=== PATIENT | female | born 1995 | race Caucasian/White ===

== ENCOUNTER 2019-10-31 14:04 | Emergency (ER) | payer OTHER ==
--- NOTE | 2019-10-31 14:41 | ER Document Report ---
ED Medical Screen (RME) - General Chief Complaint: Chest Pain Stated Complaint: CHEST PAIN Time Seen by Provider: 10/31/19 14:35 Mode of Arrival: Ambulatory Information source: Patient Notes: 24-year-old female presented to ED for complaint of chest pain shortness of breath feels like there is a weight on her chest. She is alert oriented respirations regular nonlabored speaking in full sentences. She is 1. Para 1. She does not smoke drink or use any drugs. She states she has never felt anything like this before. Consult with Dr. Donnelly he stated that she go ahead and get normal chest pain protocol. Will give aspirin due to the fact that she is . I have greeted and performed a rapid initial assessment of this patient. A comprehensive ED assessment and evaluation of the patient, analysis of test results and completion of medical decision making process will be conducted by an additional ED providers. Physical Exam - Vital signs Vitals: Temp Pulse Resp BP Pulse Ox 98.4 F 80 20 111/71 100 10/31/19 14:14 10/31/19 14:14 10/31/19 14:14 10/31/19 14:14 10/31/19 14:14 Course - Vital Signs Vital signs: Temp Pulse Resp BP Pulse Ox 98.4 F 80 20 111/71 100 10/31/19 14:14 10/31/19 14:14 10/31/19 14:14 10/31/19 14:14 10/31/19 14:14
[2019-10-31 15:27] LABS: HEMATOCRIT 34.6 % (36.0-47.0); HEMOGLOBIN 12.1 g/dL (12.0-15.5); MEAN CORPUSCULAR HEMOGLOBIN 31.1 pg (27.0-33.4); MEAN CORPUSCULAR HGB CONC 34.9 g/dL (32.0-36.0); MEAN CORPUSCULAR VOLUME 89 fl (80-97); PLATELET COUNT 270 10^3/uL (150-450); RED BLOOD COUNT 3.89 10^6/uL (3.72-5.28); RED CELL DISTRIBUTION WIDTH 13.4 % (11.5-14.0); WHITE BLOOD COUNT 14.1 10^3/uL (4.0-10.5)
--- NOTE | 2019-10-31 15:35 | RADIOLOGY REPORT (SQ) ---
EXAM DESCRIPTION: CHEST 2 VIEWS IMAGES COMPLETED DATE/TIME: 10/31/2019 3:22 pm REASON FOR STUDY: chest pain COMPARISON: None. EXAM PARAMETERS: NUMBER OF VIEWS: two views TECHNIQUE: Digital Frontal and Lateral radiographic views of the chest acquired. RADIATION DOSE: NA LIMITATIONS: none FINDINGS: LUNGS AND PLEURA: No opacities, masses or pneumothorax. No pleural effusion. MEDIASTINUM AND HILAR STRUCTURES: No masses or contour abnormalities. HEART AND VASCULAR STRUCTURES: Heart normal size. No evidence for failure. BONES: No acute findings. HARDWARE: None in the chest. OTHER: No other significant finding. IMPRESSION: NO ACUTE RADIOGRAPHIC FINDING IN THE CHEST. TECHNICAL DOCUMENTATION: JOB ID: [id number] 2010 [employer]- All Rights Reserved Reading location - IP/workstation name: [email or web address]
[2019-10-31 15:43] LABS: ALBUMIN 3.7 g/dL (3.5-5.0); ALKALINE PHOSPHATASE 72 U/L (38-126); ANION GAP 9 (5-19); ASPARTATE AMINO TRANSFERASE 24 U/L (14-36); BILIRUBIN,DIRECT 0.2 mg/dL (0.0-0.4); BILIRUBIN,TOTAL 0.9 mg/dL (0.2-1.3); BLOOD UREA NITROGEN 7 mg/dL (7-20); CALCIUM 9.6 mg/dL (8.4-10.2); CARBON DIOXIDE 24 mmol/L (22-30); CHLORIDE 103 mmol/L (98-107); GLUCOSE 86 mg/dL (75-110); POTASSIUM 4.6 mmol/L (3.6-5.0); TOTAL PROTEIN 6.3 g/dL (6.3-8.2)
--- NOTE | 2019-10-31 15:54 | ER Document Report ---
ED Cardiac - General Chief Complaint: Chest Pain Stated Complaint: CHEST PAIN Time Seen by Provider: 10/31/19 14:35 Primary Care Provider: [facility] [Provider Group] - Follow up as needed CYNDI VILLALOBOS MD [ACTIVE STAFF] - Follow up as needed Mode of Arrival: Ambulatory Information source: Patient Notes: Patient presents complaining of heart racing off and on since yesterday. Patient reports chest pressure today with exertional shortness of breath. P anisha is currently 28 weeks . Patient denies any urinary symptoms or vaginal bleeding. Patient denies any nausea or vomiting. Patient does report movement. Patient states that she has been on 2 trips recently 1 to [place] and 1 cross[place]country 4 weeks ago. Patient denies any leg pain or swelling. Patient denies any previous history of DVT or PE. - HPI Patient complains to provider of: Chest pain, Palpitations, Shortness of breath Is the pain a: New problem Quality of pain: Pressure Pain level currently: 2 Chest pain precipitating factors: Physical Exertion Cardiac risk factors: denies: Smoker Associated symptoms: denies: Abdominal pain, Back pain, Syncope Exacerbated by: Activity Relieved by: Nothing Similar symptoms previously: No Recently seen / treated by doctor: No - Related Data Allergies/Adverse Reactions: No Known Allergies Allergy (Unverified 10/31/19 15:45) Past Medical History - General Information source: Patient - Social History Smoking Status: Never Smoker Frequency of alcohol use: None Drug Abuse: None Occupation: None Lives with: Spouse/Significant other Family History: Reviewed & Not Pertinent - Medical History Medical History: Negative Past Surgical History: Reports: Hx Orthopedic Surgery Review of Systems - Review of Systems Constitutional: No symptoms reported. denies: Fever, Recent illness EENT: No symptoms reported Cardiovascular: Chest pain, Palpitations, Dyspnea Respiratory: Short of breath. denies: Cough Gastrointestinal: No symptoms reported. denies: Abdominal pain, Nausea, Vomiting Genitourinary: No symptoms reported Female Genitourinary: No symptoms reported Musculoskeletal: No symptoms reported. denies: Back pain, Leg swelling Skin: No symptoms reported Hematologic/Lymphatic: No symptoms reported Neurological/Psychological: No symptoms reported Physical Exam - Vital signs Vitals: Temp Pulse Resp BP Pulse Ox 98.4 F 80 20 111/71 100 10/31/19 14:14 10/31/19 14:14 10/31/19 14:14 10/31/19 14:14 10/31/19 14:14 - General General appearance: Appears well, Alert In distress: None - HEENT Head: Normocephalic, Atraumatic Eyes: Normal Conjunctiva: Normal Nasal: Normal Mouth/Lips: Normal Mucous membranes: Normal Neck: Normal, Supple. No: Lymphadenopathy - Respiratory Respiratory status: No respiratory distress Chest status: Tender Breath sounds: Normal Chest palpation: Normal - Cardiovascular Rhythm: Regular Heart sounds: S1 appreciated, S2 appreciated - Abdominal Inspection: Gravid female Distension: No distension Bowel sounds: Normal Tenderness: Nontender - Back Back: Normal, Nontender. No: CVA tenderness - Extremities General upper extremity: Normal inspection, Normal strength General lower extremity: Normal inspection, Normal strength. No: Edema - Neurological Neuro grossly intact: Yes Cognition: Normal [place] Coma Scale Eye Opening: Spontaneous [place] Coma Scale Verbal: Oriented [place] Coma Scale Motor: Obeys Commands [place] Coma Scale Total: 15 - Psychological Associated symptoms: Normal affect, Normal mood - Skin Skin Temperature: Warm Skin Moisture: Dry Skin Color: Normal Course - Re-evaluation Re-evalutation: 10/31/19 16:41 Patient with heart rate in the 90s to 100s at rest, patient reports increased heart rate with exertion and complains of chest pressure with dyspnea. Patient does report long distance travel recently to [place] and then 1 month ago cross- country. 10/31/19 16:46 Discussed with patient concern about possible PE given recent long distance travel trips. Discussed risks of radiation exposure versus missing diagnosis of PE, patient is agreeable with contrasted study at this time. 10/31/19 18:00 No evidence for PE on CTA at this time. Presentation of chest pain in an otherwise well appearing patient. Low clinical suspicion for ACS given clinical history, exam, and EKG, and negative initial troponin. HEART score less than or equal to 3. PE also seems unlikely given negative CTA. CXR without evidence of pneumothorax or pneumonia. No widened mediastinum. Chest pain in a patient without evidence of cardiac or other serious etiology on workup today. I discussed with patient that, based on their age, risk factors and emergency department testing today, the likelihood that their symptoms are related to a heart attack is very low. The patient demonstrates decision making capacity and has verbalized an understanding of these risks to me. Based on this, the patient has chosen to follow-up as an outpatient. Usual chest pain return precautions reviewed. The patient states understanding and agreement with this plan. - Vital Signs Vital signs: Temp Pulse Resp BP Pulse Ox 98.4 F 80 19 99/57 L 99 10/31/19 14:14 10/31/19 14:14 10/31/19 19:00 10/31/19 18:11 10/31/19 19:00 - Laboratory Result Diagrams: 10/31/19 14:58 10/31/19 14:58 Laboratory results interpreted by me: 10/31/19 10/31/19 14:58 14:58 WBC 14.1 H Hct 34.6 L Seg Neuts % (Manual) 81 H Lymphocytes % (Manual) 7 L Abs Neuts (Manual) 11.4 H Sodium 135.5 L 10/31/19 18:00 Labs- All tests 24 hr 10/31/19 10/31/19 10/31/19 14:58 14:58 14:58 WBC 14.1 H RBC 3.89 Hgb 12.1 Hct 34.6 L MCV 89 MCH 31.1 MCHC 34.9 RDW 13.4 Plt Count 270 Lymph % (Auto) Not Reportable Crosby % (Auto) Not Reportable Eos % (Auto) Not Reportable Baso % (Auto) Not Reportable Absolute Neuts (auto) Not Reportable Absolute Lymphs (auto) Not Reportable Absolute Monos (auto) Not Reportable Absolute Eos (auto) Not Reportable Absolute Basos (auto) Not Reportable Total Counted 100 Seg Neutrophils % Not Reportable Seg Neuts % (Manual) 81 H Lymphocytes % (Manual) 7 L Monocytes % (Manual) 10 Eosinophils % (Manual) 1 Basophils % (Manual) 1 Abs Neuts (Manual) 11.4 H Abs Lymphs (Manual) 1.0 Abs Monocytes (Manual) 1.4 Absolute Eos (Manual) 0.1 Abs Basophils (Manual) 0.1 Clumped Platelets PRESENT Platelet Comment ADEQUATE RBC Morph Comment NORMO-CYTIC/CHROMIC Sodium 135.5 L Potassium 4.6 Chloride 103 Carbon Dioxide 24 Anion Gap 9 BUN 7 Creatinine 0.52 Est GFR ( Amer) > 60 Est GFR (MDRD) Non-Af > 60 Glucose 86 Calcium 9.6 Total Bilirubin 0.9 Direct Bilirubin 0.2 Neonat Total Bilirubin Not Reportable Neonat Direct Bilirubin Not Reportable Neonat Indirect Bili Not Reportable AST 24 ALT 17 Alkaline Phosphatase 72 Troponin I < 0.012 Total Protein 6.3 Albumin 3.7 - Diagnostic Test Radiology reviewed: Reports reviewed - EKG Interpretation by Me EKG shows normal: Sinus rhythm Rhythm: PVC's When compared to previous EKG there are: Previous EKG unavailable Additional EKG results interpreted by me: 10/31/19 18:01 Sinus rhythm with a rate of 80 with a PVC, QTc 462, no prior EKG available for comparison Discharge - Discharge Clinical Impression: Chest pain Qualifiers: Chest pain type: unspecified Qualified Code(s): R07.9 - Chest pain, unspecified Dyspnea Qualifiers: Dyspnea type: unspecified Qualified Code(s): R06.00 - Dyspnea, unspecified Qualifiers: Weeks of gestation: 28 weeks Qualified Code(s): Z3A.28 - 28 weeks gestation of Condition: Stable Disposition: HOME, SELF-CARE Instructions: Chest Pain of Unclear Cause ([facility]), Dyspnea, Nonspecific ([facility]) Additional Instructions: Return immediately for any new or worsening symptoms Followup with your primary care provider, call tomorrow to make a followup appointment Follow-up with your THERAPEUTIC CASE MANAGER provider for recheck, they may refer to cardiology for further evaluation Referrals: [facility] [Provider Group] - Follow up as needed CYNDI VILLALOBOS MD [ACTIVE STAFF] - Follow up as needed
[2019-10-31] MEDS ORDERED: NORMAL SALINE 1000 ML 1,000 ML IV ONE (15:55)
[2019-10-31 16:08] LABS: ABSOLUTE MONOCYTES # (MANUAL) 1.4 10^3/uL (0.1-1.4); BASOPHILS % (MANUAL) 1 % (0-2); EOSINOPHILS % (MANUAL) 1 % (0-6); LYMPHOCYTES % (MANUAL) 7 % (13-45); MONOCYTES % (MANUAL) 10 % (3-13); SEGMENTED NEUTROPHILS % (MAN) 81 % (42-78); TOTAL CELLS COUNTED 100
[2019-10-31 16:09] LABS: PLATELET CLUMPS PRESENT; PLATELET COMMENT ADEQUATE
[2019-10-31 16:10] LABS: RBC MORPHOLOGY COMMENT NORMO-CYTIC/CHROMIC
--- NOTE | 2019-10-31 17:49 | RADIOLOGY REPORT (SQ) ---
EXAM DESCRIPTION: CTA CHEST IMAGES COMPLETED DATE/TIME: 10/31/2019 5:14 pm REASON FOR STUDY: SVEN SOB COMPARISON: 10/31/2019 TECHNIQUE: CT scan of the chest performed using helical scanning technique with dynamic intravenous contrast injection. Images reviewed with lung, soft tissue and bone windows. Reconstructed coronal and sagittal MPR images reviewed. Additional 3 dimensional post-processing performed to develop Maximal Intensity Projection images (WI P). All images stored on PACS. All CT scanners at this facility use dose modulation, iterative reconstruction, and/or weight based d osing when appropriate to reduce radiation dose to as low as reasonably achievable (ALARA). [facility]: Dose Right [facility]: CareDose [facility]: Dose Right [facility]: Teradose 4D [facility]: Fresvii CONTRAST TYPE AND DOSE: contrast/concentration: Isovue 350.00 mmol/ml; Total Contrast Delivered: 75. 0 ml; Total Saline Delivered: 75.0 ml Contrast bolus adequate for pulmonary arteries and aorta. RENAL FUNCTION: BUN 7; creatinine 0.52 RADIATION DOSE: CT Rad equipment meets quality standard of care and radiation dose reduction techniq ues were employed. CTDIvol: 9.9 - 16.7 mGy. DLP: 524 mGy-cm. . LIMITATIONS: None. FINDINGS: LUNGS AND PLEURA: No masses, infiltrates, or pneumothorax. No pleural effusions or pleura l calcifications. AORTA AND GREAT VESSELS: No aneurysm. Contrast bolus not optimized for the aorta. HEART: No pericardial effusion. No significant coronary artery calcifications. PULMONARY ARTERIES: No emboli visualized in the main pulmonary arteries or the segmental branches. HILAR AND MEDIASTINAL STRUCTURES: No identified masses or abnormal nodes. HARDWARE: None in the chest. UPPER ABDOMEN: No significant findings. Limited exam. THYROID AND OTHER SOFT TISSUES: No masses. No adenopathy. BONES: No acute or significant finding. 3D MIPS: Confirm above findings. OTHER: No other significant finding. IMPRESSION: No evidence of central or segmental pulmonary embolus. No acute cardiopulmonary abnorma lity. COMMENT: Quality ID # [id number]: Final reports with documentation of one or more dose reduction techniques (e.g., Automated exposure control, adjustment of the mA and/or kV according to patient size, use of iterative reconstruction technique) TECHNICAL DOCUMENTATION: JOB ID: [id number] 2010 [employer]- All Rights Reserved Reading location - IP/workstation name: [email or web address]
--- NOTE | 2019-10-31 19:12 | EKG REPORT ---
SEVERITY:- ABNORMAL ECG - SINUS RHYTHM VENTRICULAR PREMATURE COMPLEX LEFT ATRIAL ABNORMALITY NONSPECIFIC INTRAVENTRICULAR CONDUCTION DELAY BORDERLINE ST DEPRESSION, LATERAL LEADS : Confirmed by: Flower Kulkarni 31-Oct-2019 19:12:20
[2019-10-31 19:21] VITALS: BP 99/57
== END 2019-10-31 19:21 | disposition home or self-care (01) ==
LOC: ER 14:04
DX: O26.893 Other specified pregnancy related conditions, third trimester (principal); R07.89 Other chest pain; R06.02 Shortness of breath; R00.2 Palpitations; O99.413 Diseases of the circulatory system complicating pregnancy, third trimester; I49.3 Ventricular premature depolarization; Z3A.28 28 weeks gestation of pregnancy
CPT/HCPCS: 93005; 99285; 96360; 36415; 85025; 80053; 84484; 71046; 71275; 93010; J7030

== ENCOUNTER 2019-11-25 13:44 | Outpatient (CLI) | payer OTHER ==
[2019-11-25 14:22] LABS: AMORPHOUS SEDIMENT,URINE TRACE /HPF; APPEARANCE,URINE CLOUDY; BILIRUBIN,URINE NEGATIVE (NEGATIVE); COLOR,URINE YELLOW; GLUCOSE, URINE NEGATIVE (NEGATIVE); KETONES,URINE NEGATIVE (NEGATIVE); LEUKOCYTE ESTERASE,URINE SMALL (NEGATIVE); NITRITE,URINE NEGATIVE (NEGATIVE); PROTEIN,URINE 30 mg/dL (NEGATIVE); URINE SPECIFIC GRAVITY 1.013
[2019-11-25 14:47] LABS: URINE AMPHETAMINES SCREEN NEGATIVE; URINE BARBITURATES SCREEN NEGATIVE; URINE BENZODIAZEPINES SCREEN NEGATIVE; URINE COCAINE SCREEN NEGATIVE; URINE MARIJUANA (THC) SCREEN NEGATIVE; URINE METHADONE SCREEN NEGATIVE; URINE PHENCYCLIDINE SCREEN NEGATIVE
== END 2019-11-25 14:49 | disposition home or self-care (01) ==
LOC: LC 13:44
PROVIDERS: ATTEND Obstetrics & Gynecology Gynecology
DX: O36.8130 Decreased fetal movements, third trimester, not applicable or unspecified (principal); Z3A.30 30 weeks gestation of pregnancy
CPT/HCPCS: 80307; 81001

== ENCOUNTER 2020-01-28 20:16 | Outpatient (CLI) | payer OTHER ==
[2020-01-28 22:42] LABS: ABSOLUTE BASOPHILS # (AUTO) 0.1 10^3/uL (0.0-0.2); ABSOLUTE EOSINOPHILS # (AUTO) 0.1 10^3/uL (0.0-0.6); ABSOLUTE LYMPHOCYTES (AUTO) 1.4 10^3/uL (0.5-4.7); ABSOLUTE MONOCYTES (AUTO) 0.9 10^3/uL (0.1-1.4); ABSOLUTE NEUT (AUTO) 8.9 10^3/uL (1.7-8.2); BASOPHILS % (AUTO) 0.4 % (0-2); EOSINOPHILS % (AUTO) 0.8 % (0-6); HEMATOCRIT 33.1 % (36.0-47.0); HEMOGLOBIN 11.5 g/dL (12.0-15.5); LYMPHOCYTES % (AUTO) 12.2 % (13-45); MEAN CORPUSCULAR HEMOGLOBIN 30.3 pg (27.0-33.4); MEAN CORPUSCULAR HGB CONC 34.7 g/dL (32.0-36.0); MEAN CORPUSCULAR VOLUME 87 fl (80-97); MONOCYTES % (AUTO) 7.9 % (3-13); PLATELET COUNT 252 10^3/uL (150-450); RED BLOOD COUNT 3.78 10^6/uL (3.72-5.28); RED CELL DISTRIBUTION WIDTH 14.1 % (11.5-14.0); SEGMENTED NEUTROPHILS % (AUTO) 78.7 % (42-78); TOTAL CELLS COUNTED % (AUTO) 100 %; WHITE BLOOD COUNT 11.3 10^3/uL (4.0-10.5)
--- NOTE | 2020-01-28 23:59 | RADIOLOGY REPORT (SQ) ---
Ultrasound OB biophysical profile without nonstress test on 01/28/2020 at 11:01 PM CLINICAL INDICATION: Nonreactive strip, 40 weeks COMPARISON: None FINDINGS: Limited sonographic images are obtained throughout the pelvis by transabdominal approach, both transverse and sagittal images are obtained. Single living intrauterine fetus is noted in cephalic presentation. Positive cardiac activity is noted with a heart rate of 155 bpm. Placenta is anterior in location with no evidence of placenta previa or abruption. Normal amount of amniotic fluid is noted with amniotic fluid index of 12.7 cm with a maximum vertical pocket of 7.56 cm. Biophysical profile is six out of eight with zero out of two for breathing. measurements for dates were not performed. Maternal adnexa were not imaged. IMPRESSION: 1. Single living intrauterine fetus in cephalic presentation. 2. Biophysical profile is six out of eight with zero out of two for breathing.
--- NOTE | 2020-01-29 00:35 | Non Stress Test Report ---
Non Stress Test Datetime Report Generated by CPN: 01/29/2020 00:35 DEMOGRAPHIC EGA NST: 40.0 INDICATION Indication for Study (NST) Other: IUP @ 40.1 VITAL SIGNS Temperature - NST: 98.9 Pulse - NST: 96 RESP - NST: 17 NBPSYS NST: 116 NBPDIA NST: 77 MONITORING Monitor Explained: Monitor Explained; Test Explained; Patient Verbalized Understanding Time on Monitor: 01/28/2020 23:43 Time off Monitor: 01/29/2020 00:16 NST Duration: 33 NST INTERVENTIONS NST Interventions: PO Hydration; IV Fluids; Reposition Patient; For Biophysical Profile Physician Notified NST: Dr. Adam BABY A: [id number] BABY A Movement : Present Contraction Frequency : irregular FHR Baseline : 150 Accelerations : 15X15 Decelerations : Late Variability : Moderate 6-25bpm NST Review: Questionable if Meets Criteria for Reactive NST NST Review and Verified By : Darek Roman, RN NST Results: Reactive NST COMMENTS NST Comments: Provider notified of questionable strip with late decelerations; moderate variability. BPP results 6/8. NST REPORT Report Trigger: Send Report
== END 2020-01-29 00:35 | disposition home or self-care (01) ==
LOC: LC 20:16
PROVIDERS: ATTEND Obstetrics & Gynecology Gynecology
DX: O47.1 False labor at or after 37 completed weeks of gestation (principal); Z3A.40 40 weeks gestation of pregnancy
CPT/HCPCS: 36415; 59025; 76819; 85025; 86592; 86850; 86900; 86901

== ENCOUNTER 2020-01-29 18:56 | Inpatient (IN) | payer OTHER ==
[2020-01-29 19:47] LABS: APPEARANCE,URINE CLEAR; BILIRUBIN,URINE NEGATIVE (NEGATIVE); COLOR,URINE YELLOW; GLUCOSE, URINE NEGATIVE (NEGATIVE); KETONES,URINE NEGATIVE (NEGATIVE); LEUKOCYTE ESTERASE,URINE TRACE (NEGATIVE); NITRITE,URINE NEGATIVE (NEGATIVE); PROTEIN,URINE 30 mg/dL (NEGATIVE); URINE SPECIFIC GRAVITY 1.014
[2020-01-29 20:05] LABS: URINE AMPHETAMINES SCREEN NEGATIVE; URINE BARBITURATES SCREEN NEGATIVE; URINE BENZODIAZEPINES SCREEN NEGATIVE; URINE COCAINE SCREEN NEGATIVE; URINE MARIJUANA (THC) SCREEN NEGATIVE; URINE METHADONE SCREEN NEGATIVE; URINE PHENCYCLIDINE SCREEN NEGATIVE
--- NOTE | 2020-01-29 22:14 | Admission Physical ---
Datetime Report Generated by CPN: 01/29/2020 22:14 CURRENT ADMISSION Chief Complaint: Uterine Contractions Indication for Induction: Not Applicable Admit Impression : Term, Intrauterine ; Active Labor Admit Plan: Admit to Unit; Initiate Labor Protocol ALLERGIES Medication Allergies: No Medication Allergies: No Known Allergies (01/28/2020) Latex: No Latex Allergies OBSTETRICAL HISTORY EDC: 01/28/2020 00:00 : 1 Para: 0 Term: 0 : 0 SAB: 0 IAB: 0 Ectopic: 0 Livin Cesareans: 0 VBACs: 0 Multiple Births: 0 SEE RECORDS Alcohol: No Marijuana : No Cocaine: No Other Illicit Drugs: No Cigarettes: Never Smoker. [id number] PHYSICAL EXAM General: Normal HEENT: Normal Neurologic: Normal Thyroid: Normal Heart: Normal Lungs: Normal Breast: Normal Back: Normal Abdomen: Normal Genitourinary Exam: Normal Extremities: Normal DTRs: Normal Pelvic Type: Adequate Vital Signs: Reviewed; Within Normal Limits VAGINAL EXAM Dilatation: 5 Effacement: 80 Station: -2 MEMBRANES Pooling: Negative Membranes: Intact Amniotic Fluid Color: Clear FETUS A EGA: 40.1 Monitoring: External US FHR- Baseline: 130 Variability: Moderate 6-25bpm Accelerations: 15X15 Decelerations: None FHR Category: Category I Estimated Weight (gm): 3500 Presentation: Vertex PLANS FOR LABOR AND DELIVERY Labor and Delivery: None Benefit of Breast Feed Discussed: Yes INFORMED CONSENT Signature: with User ID: [email or web address]
[2020-01-29] MEDS ORDERED: RINGERS SOLUTION,LACTATED 1,000 ML IV PRN (23:36)
[2020-01-30 00:02] LABS: ABSOLUTE BASOPHILS # (AUTO) 0.1 10^3/uL (0.0-0.2); ABSOLUTE EOSINOPHILS # (AUTO) 0.1 10^3/uL (0.0-0.6); ABSOLUTE LYMPHOCYTES (AUTO) 1.6 10^3/uL (0.5-4.7); ABSOLUTE MONOCYTES (AUTO) 1.2 10^3/uL (0.1-1.4); ABSOLUTE NEUT (AUTO) 12.3 10^3/uL (1.7-8.2); BASOPHILS % (AUTO) 0.4 % (0-2); EOSINOPHILS % (AUTO) 0.6 % (0-6); HEMATOCRIT 32.4 % (36.0-47.0); HEMOGLOBIN 11.1 g/dL (12.0-15.5); LYMPHOCYTES % (AUTO) 10.3 % (13-45); MEAN CORPUSCULAR HEMOGLOBIN 29.9 pg (27.0-33.4); MEAN CORPUSCULAR HGB CONC 34.3 g/dL (32.0-36.0); MEAN CORPUSCULAR VOLUME 87 fl (80-97); MONOCYTES % (AUTO) 7.8 % (3-13); PLATELET COUNT 241 10^3/uL (150-450); RED BLOOD COUNT 3.72 10^6/uL (3.72-5.28); RED CELL DISTRIBUTION WIDTH 13.7 % (11.5-14.0); SEGMENTED NEUTROPHILS % (AUTO) 80.9 % (42-78); TOTAL CELLS COUNTED % (AUTO) 100 %; WHITE BLOOD COUNT 15.3 10^3/uL (4.0-10.5)
[2020-01-30] MEDS ORDERED: LIDOCAINE 1% INJ-PF (10 MG/ML) 30 ML SDV ONE (00:10)
[2020-01-30] MEDS ORDERED: OXYTOCIN 10 UNIT/ML VIAL ONE (00:10)
[2020-01-30] MEDS ORDERED: OXYTOCIN/0.9 % SODIUM CHLORIDE 30 UNIT/500 ML RTUINJ ONE (00:10)
[2020-01-30] MEDS ORDERED: EPHEDRINE SULFATE INJ 50 MG/1 ML AMPULE ONE (00:10)
[2020-01-30] MEDS ORDERED: MISOPROSTOL 0.2 MG TABLET ONE (00:10)
[2020-01-30] MEDS ORDERED: FENTANYL/BUPIVACAINE/NS/PF 300 MCG/150 ML RTUINJ EPI ONE (00:10)
[2020-01-30] MEDS ORDERED: ROPIVACAINE HCL 0.2% INJ/PF (2 MG/ML) 20 ML SDV ONE (00:11)
[2020-01-30] MEDS ORDERED: RINGERS SOLUTION,LACTATED 1,000 ML IV ONE (00:40)
--- NOTE | 2020-01-30 08:31 | L&D Progress Notes ---
PROGRESS NOTES Datetime Report Generated by CPN: 01/30/2020 08:31 PROGRESS NOTE Comment: Cat 1 strip, uc q 3-4, feeling no pain with epidural, last exam 9cm and asynclitic, hsb at bedside, did not examine pt, POC discussed, anticipate , EFW 7-4 VAGINAL EXAM Dilatation: 5 Effacement: 80 Station: -2 LAST VAGINAL EXAM-NURSING Nursing Exam Dilitation: 9.0 Nursing Exam Effacement: 90 Nursing Exam Station: -1 MEMBRANES Pooling: Negative Membranes: Intact Amniotic Fluid Color: Clear FETUS A : 40.1 Estimated Weight (gm): 3500 Presentation: Vertex SIGNATURE SIGNATURE: [id number];[id number];[id number] Assignment: Christine Menendez MD Signature: with User ID: [email or web address] : with User ID: [email or web address]
--- NOTE | 2020-01-30 09:16 | L&D Progress Notes ---
PROGRESS NOTES Datetime Report Generated by CPN: 01/30/2020 09:16 PROGRESS NOTE Comment: Complete, will start pushing, Cat 1 strip, anticipate VAGINAL EXAM Dilatation: 5 Effacement: 80 Station: -2 LAST VAGINAL EXAM-NURSING Nursing Exam Dilitation: 10.0 Nursing Exam Effacement: 100 Nursing Exam Station: 0 MEMBRANES Pooling: Negative Membranes: Intact Amniotic Fluid Color: Clear FETUS A : 40.1 Estimated Weight (gm): 3500 Presentation: Vertex SIGNATURE SIGNATURE: [id number];[id number];[id number] Assignment: Christine Menendez MD Signature: with User ID: [email or web address] : with User ID: [email or web address]
[2020-01-30] MEDS ORDERED: ACETAMINOPHEN 650 MG SUPP.RECT PR PRN (10:01)
[2020-01-30] MEDS ORDERED: PSEUDOEPHEDRINE HCL 30 MG TABLET PO PRN (10:01)
[2020-01-30] MEDS ORDERED: NA PHOS,M-B/NA PHOS,DI-BA (ADULT) 133 ML ENEMA PR PRN (10:01)
[2020-01-30] MEDS ORDERED: PROMETHAZINE HCL 25 MG TABLET PO PRN (10:01)
[2020-01-30] MEDS ORDERED: MAGNESIUM HYDROXIDE SUSP 30 ML UDCUP PO PRN (10:01)
[2020-01-30] MEDS ORDERED: GLYCERIN/WITCH HAZEL LEAF 1 EACH MED..WIPE TP PRN (10:01)
[2020-01-30] MEDS ORDERED: ZOLPIDEM TARTRATE 5 MG TABLET PO PRN (10:01)
[2020-01-30] MEDS ORDERED: DIPHENHYDRAMINE HCL 25 MG CAPSULE PO PRN (10:01)
[2020-01-30] MEDS ORDERED: PROMETHAZINE HCL 25 MG SUPP.RECT PR PRN (10:01)
[2020-01-30] MEDS ORDERED: PROMETHAZINE HCL INJ 25 MG/1 ML VIAL IV PRN (10:01)
[2020-01-30] MEDS ORDERED: BENZOCAINE/MENTHOL AEROSOL SPRAY 56 ML TOP PRN (10:01)
[2020-01-30] MEDS ORDERED: DIBUCAINE 1% OINTMENT 28 GM TP PRN (10:01)
[2020-01-30] MEDS ORDERED: DIPH/PERTUSS(ACELL)/TETANUS VAC/PF 0.5 ML SYR (>=10YO) IM PRN (10:01)
[2020-01-30] MEDS ORDERED: ACETAMINOPHEN WITH CODEINE #3 TABLET PO PRN ×2 (10:01)
[2020-01-30] MEDS ORDERED: MEASLES,MUMPS&RUBELLA VACC/PF 0.5 ML VIAL SUBCUT PRN (10:01)
[2020-01-30] MEDS ORDERED: ACETAMINOPHEN 325 MG TABLET PO PRN (10:01)
[2020-01-30] MEDS ORDERED: OXYTOCIN/0.9 % SODIUM CHLORIDE 30 UNIT/500 ML RTUINJ IV PRN (10:01)
--- NOTE | 2020-01-30 11:56 | Birth Certificate Data ---
Cert Data Datetime Report Generated by CPN: 01/30/2020 11:55 CERTIFICATE DATA Delivery Provider: Holli Mejía CNM (11/25/2019 13:59:Risa Pitts RN) 47a. Care: Yes (11/25/2019 13:59:Haleigh Gagnon RN) 48a. Number of Prev Live Births: 0 (11/25/2019 13:59:Haleigh Gagnon RN) 48b. Now Livin (11/25/2019 13:59:Haleigh Gagnon RN) 48c. Live Births Now : 0 (11/25/2019 13:59:QS system process) 48e. Losses: 0 (11/25/2019 13:59:Haleigh Gagnon RN) RISK FACTORS IN THIS 49a. Diabetes: No (11/25/2019 13:59:Haleigh Gagnon RN) 49b. Hypertension: No (11/25/2019 13:59:Haleigh Gagnon RN) 49c. Previous Births: 0 (11/25/2019 13:59:Haleigh Gagnon RN) 49d. Stillborns: No (11/25/2019 13:59:Haleigh Gagnon RN) 49d. IUGR: No (11/25/2019 13:59:Haleigh Gagnon RN) 49e. Infertility Treatment: No (11/25/2019 13:59:Haleigh Gagnon RN) 49f. Previous Cesareans: 0 (11/25/2019 13:59:Haleigh Gagnon RN) Mother's Height 50b. Height Inches: 65 (11/25/2019 14:02:QS system process) Mother's Weight 51b. Weight at Delivery (lbs): 180 (01/29/2020 22:06:QS system process) Infections Present/Treated 53a. Gonorrhea: No (11/25/2019 13:59:Haleigh Gagnon RN) Results this Hospital Visit : Negative (11/25/2019 13:59:Haleigh Gagnon RN) 53b. Syphilis: No (11/25/2019 13:59:Haleigh Gagnon RN) Results this Hospital Visit: NONREACTIVE (01/29/2020 23:55:QS system process) 53c. Chlamydia: No (11/25/2019 13:59:Haleigh Gagnon RN) Results this Hospital Visit: Negative (11/25/2019 13:59:Haleigh Gagnon RN) 53d. Hepatitis B: No (11/25/2019 13:59:Haleigh Gagnon RN) Results this Hospital Visit: Negative (11/25/2019 13:59:Haleigh Gagnon RN) 53e. Hepatitis C: Negative (11/25/2019 13:59:Haleigh Gagnon RN) 53h. Mother Tested for HBsAG: Yes (11/25/2019 13:59:Haleigh Gagnon RN) 53i. Date Tested: 07/23/2019 00:00 (11/25/2019 13:59:Haleigh Gagnon RN) 53j. Test Result: Negative (11/25/2019 13:59:Haleigh Gagnon RN) Obstetric Procedures 54a, b, c. Obstetric Procedures: Ultrasound; NST (11/25/2019 13:59:Haleigh Gagnon RN) Cigarette Smoking Cigarette Smoking: Never Smoker. [id number] (11/25/2019 13:59:Haleigh Gagnon RN) 55a. 3 Months Before Preg - Ci (11/25/2019 13:59:Haleigh Gagnon RN) 55a. Packs: 0 (11/25/2019 13:59:Haleigh Gagnon RN) 55b. 1st Trimester of Preg- Ci (11/25/2019 13:59:Haleigh Gagnon RN) 55b. Packs: 0 (11/25/2019 13:59:Haleigh Gagnon RN) 55c. 2nd Trimester of Preg- Ci (11/25/2019 13:59:Haleigh Gagnon RN) 55c. Packs: 0 (11/25/2019 13:59:Haleigh Gagnon RN) 55d. 3rd Trimester of Preg- Ci (11/25/2019 13:59:Haleigh Gagnon RN) 55d. Packs: 0 (11/25/2019 13:59:Haleigh Gagnon RN) Onset of Labor 56a. PROM >12 Hrs: 2.27 (11/25/2019 13:59:QS system process) 56b. Precipitous Labor <3 Hrs: 8 (11/25/2019 13:59:QS system process) 56c. Prolonged Labor > 20 Hrs: 8 (11/25/2019 13:59:QS system process) 57a. Induction of Labor: Augmentation (11/25/2019 13:59:Risa Pitts RN) 57c. Non-Vertex Presentation A: Vertex (11/25/2019 13:59:Risa Pitts RN) 57d. Steroids - Lung Mat: None (11/25/2019 13:59:Risa Pitts RN) 57d. Steroids - Lung Mat: Not Applicable (11/25/2019 13:59:Risa Pitts RN) 57g. Moderate/Heavy Meconium: Clear (01/30/2020 07:30:Risa Pitts RN) 57h. Intolerance of Labor: N/A (11/25/2019 13:59:Risa Pitts RN) : N/A (11/25/2019 13:59:Risa Pitts RN) 57i. Epidural/Spinal Anesthesia: Epidural (11/25/2019 13:59:Risa Pitts RN) Method of Delivery 58a. Forceps - Unsuccessful A: N/A (11/25/2019 13:59:Risa Pitts RN) 58b. Vacuum - Unsuccessful A: N/A (11/25/2019 13:59:Risa Pitts RN) 58c. Presentation at 58c. Presentation at - A : Vertex (11/25/2019 13:59:Risa Pitts RN) 58c. Presentation at - A : N/A (11/25/2019 13:59:Risa Pitts RN) 58c. Presentation at - A : Cephalic (01/29/2020 20:59:Haleigh Gagnon RN) Final Route and Method of Del 58d. Baby A Route/Delivery: Vaginal (01/30/2020 09:46:Risa Pitts RN) 58e. Trial of Labor Attempted: No (11/25/2019 13:59:Risa Pitts RN) 58e. Trial of Labor Attempted A: N/A (11/25/2019 13:59:Risa Pitts RN) Maternal Morbidity 59b. 3rd or 4th Degree Lacs: Periurethral (11/25/2019 13:59:Risa Pitts RN) Birthweight Baby A: 3297 (11/25/2019 13:59:Risa Pitts RN) 60a. Pounds : 7 (11/25/2019 13:59:QS system process) 60b. Ounces: 4 (11/25/2019 13:59:QS system process) 61. GA at Delivery Baby A: 40.2 (11/25/2019 13:59:Risa Pitts RN) : Full Term- 39- 40.6 Weeks (11/25/2019 13:59:QS system process) 62a. 5 Minute Baby A: 9 (11/25/2019 13:59:QS system process)
--- NOTE | 2020-01-30 11:57 | Delivery Summary ---
Del Sum A-C Datetime Report Generated by CPN: 01/30/2020 11:56 DELIVERY PERSONNEL DELIVERY PERSONNEL: [id number] Delivery Doctor:: Holli Mejía CNM Labor and Delivery Nurse:: Risa Pitts RN Trainer:: Dr. Yvonne Crisostomo Nurse Practitioner:: MARCOS Haywood Nursery Nurse:: Denise Vasquez RN Nursery Nurse:: Suzanna Brewer RN Additional Personnel: : Shellie Cardoso RN MATERNAL INFORMATION Delivery Anesthesia: Local; Epidural Medications After Delivery: Pitocin 30 Units in 500ml NS/D5W Delivery QBL: 100 Maternal Complications: None Provider Comments: viable female from OA to CHRIS over intact perineum and left and right periurethral. baby placed on mother abd and cord clamped and cut by FOB after 2.5 minutes, baby crying and moving all extremeties, spont delivery of normal looking placenta, cord insertion on edge of placenta, FFFM, lacerations repaired without difficulty, mom and baby remain in recovery in stable condition, bonding well FFFM, IV Pitocin infusing LABOR SUMMARY EDC: 01/28/2020 00:00 No. Babies in Womb: 1 Attempted: No Labor Anesthesia: Epidural LABOR INFORMATION Reason for Induction: Not Applicable Onset of Labor: 01/30/2020 01:05 Complete Dilatation: 01/30/2020 09:11 Oxytocin: Augmentation Group B Beta Strep: Negative Antibiotics # of Doses: 0 Name of Antibiotic Given: N/A Steroids Given: None Reason Steroids Not Administered: Not Applicable MEMBRANES Membranes Rupture Method: Artificial Rupture of Membranes: 01/30/2020 07:30 Length of Rupture (hr): 2.27 Amniotic Fluid Color: Clear Amniotic Fluid Amount: Small Amniotic Fluid Odor: Normal STAGES OF LABOR Stage 1 hr: 8 Stage 1 min: 6 Stage 2 hr: 0 Stage 2 min: 35 Stage 3 hr: 0 Stage 3 min: 7 Total Time in Labor hr: 8 Total Time in Labor min: 48 VAGINAL DELIVERY Episiotomy: None Laceration #1: Periurethral Laceration Extension #1: First Degree Laceration Repair: Yes Laceration Repair Note: repaired with 2-0 chromic using 1% Lidocaine Sponge Count Correct: Yes CSECTION DELIVERY Primary Indication: N/A Secondary Indication: N/A CSection Incidence: N/A Labor: N/A Elective: N/A CSection Incision: N/A BABY A INFORMATION Delivery Date/Time: 01/30/2020 09:46 Method of Delivery: Vaginal Nurse Controlled Delivery: No Born in Route : No : N/A Forceps: N/A Vacuum Extraction: N/A Shoulder Dystocia : No PRESENTATION/POSITION BABY A Presentation: Cephalic Cephalic Presentation: Vertex Vertex Position: Right Occipital Anterior Breech Presentation: N/A PLACENTA INFORMATION BABY A Placenta Delivery Time : 01/30/2020 09:53 Placenta Method of Delivery: Spontaneous Placenta Status: Delivered SCORES BABY A Heart Rate 1 min: >100 bpm Resp Effort 1 min: Good Cry Reflex Irritability 1 min: Cough or Sneeze or Pulls Away Muscle Tone 1 min: Active Motion Color 1 min: Body [place], Extremities Blue Resuscitation Effort 1 min: Tactile Stimulation SCORE 1 MIN: 9 Heart Rate 5 min: >100 bpm Resp Effort 5 min: Good Cry Reflex Irritability 5 min: Cough or Sneeze or Pulls Away Muscle Tone 5 min: Active Motion Color 5 min: Body [place], Extremities Blue Resuscitation Effort 5 min: N/A SCORE 5 MIN: 9 INFORMATION BABY A Gestational Age at Delivery: 40.2 Gestational Status: Full Term- 39- 40.6 Weeks Infant Outcome : Liveborn Condition : Stable Infant Sex: Female IDENTIFICATION BABY A Verification Date/Time: 01/30/2020 09:59 ID Band Number: [id number] Mother's Name Verified: Yes Infant RN Verifying Infant: A [place] Additional Verifying Personnel: M Sergio WEIGHT/LENGTH BABY A Infant Birthweight (gm): 3297 Weight (lb): 7 Weight (oz): 4 Length (in): 20.50 Length (cm): 52.07 CORD INFORMATION BABY A No. Cord Vessels: 3 Nuchal Cord : N/A Nuchal Cord- Other: shoulder cord Cord Blood Taken: Yes-For Storage (Mom's Blood type +) Infant Suction: None ASSESSMENT BABY A Skin to Skin: Yes Skin to Skin Time (min): 60
[2020-01-30] MEDS: IBUPROFEN 800 MG TABLET PO SCH ×3 (14:58→22:20)
[2020-01-30] MEDS ORDERED: FERROUS SULFATE 325 MG TABLET PO SCH (18:00)
[2020-01-30] MEDS: DOCUSATE SODIUM 100 MG CAPSULE PO SCH (18:50)
[2020-01-30] MEDS: FAMOTIDINE 20 MG TABLET PO SCH (22:21)
[2020-01-31] MEDS: IBUPROFEN 800 MG TABLET PO SCH ×3 (06:00→23:08)
[2020-01-31 07:21] LABS: HEMATOCRIT 28.4 % (36.0-47.0); HEMOGLOBIN 9.7 g/dL (12.0-15.5); MEAN CORPUSCULAR HEMOGLOBIN 30.1 pg (27.0-33.4); MEAN CORPUSCULAR HGB CONC 34.3 g/dL (32.0-36.0); MEAN CORPUSCULAR VOLUME 88 fl (80-97); PLATELET COUNT 208 10^3/uL (150-450); RED BLOOD COUNT 3.23 10^6/uL (3.72-5.28); RED CELL DISTRIBUTION WIDTH 14.2 % (11.5-14.0); WHITE BLOOD COUNT 13.8 10^3/uL (4.0-10.5)
[2020-01-31] MEDS: PRENATAL VITAMIN W DHA CAPSULE PO SCH (11:24)
[2020-01-31] MEDS: SENNOSIDES/DOCUSATE 8.6-50 MG 1 EACH TABLET PO SCH (11:24)
[2020-01-31] MEDS: DOCUSATE SODIUM 100 MG CAPSULE PO SCH ×2 (11:24→18:12)
[2020-01-31] MEDS: FAMOTIDINE 20 MG TABLET PO SCH ×2 (11:24→23:10)
--- NOTE | 2020-01-31 13:06 | PDOC PROGRESS REPORT ---
Subjective-OB Progress Note for:: 01/31/20 Physical Exam (OB) Vital Signs: Temp Pulse Resp BP Pulse Ox 97.8 F 85 16 106/75 100 01/31/20 08:06 01/31/20 08:00 01/31/20 08:00 01/31/20 08:00 01/31/20 08:00 Intake & Output 01/30/20 01/31/20 02/01/20 06:59 06:59 06:59 Intake Total 300 Balance 300 Weight 82.1 kg - PIH/Pre-Eclampsia Clonus: Negative Headache: Absent Epigastric Pain: No Visual Changes: No - Maternal Morbidity 59. Maternal Morbidity (serious complications experinced by the mother associated with labor and delivery: None of the above - Lochia Lochia Amount: Scant < 10 ml Lochia Color: Rubra/Red - Abdomen Description: Soft, Round Hernia Present: No Fundal Description: Firm, Midline Fundal Height: u/u - u/2 Objective-Diagnostic Laboratory: 01/31/20 06:53 01/31/20 06:53 WBC 13.8 H RBC 3.23 L Hgb 9.7 L Hct 28.4 L MCV 88 MCH 30.1 MCHC 34.3 RDW 14.2 H Plt Count 208 Assessment and Plan(PN) - Assessment and Plan (1) Active labor at term Is this a current diagnosis for this admission?: Yes (2) Laceration, obstetrical, first degree Is this a current diagnosis for this admission?: Yes (3) Vaginal delivery Is this a current diagnosis for this admission?: Yes - Time Spent with Patient Time with patient: Less than 15 minutes Medications reviewed and adjusted accordingly: Yes - Disposition Anticipated Discharge Disposition: Home, Self Care Anticipated Discharge Timeframe: within 24 hours
[2020-02-01] MEDS: IBUPROFEN 800 MG TABLET PO SCH ×2 (05:35→15:01)
[2020-02-01 08:43] VITALS: BP 109/77
[2020-02-01] MEDS: SENNOSIDES/DOCUSATE 8.6-50 MG 1 EACH TABLET PO SCH (10:22)
[2020-02-01] MEDS: PRENATAL VITAMIN W DHA CAPSULE PO SCH (10:22)
[2020-02-01] MEDS: FAMOTIDINE 20 MG TABLET PO SCH (10:22)
[2020-02-01] MEDS: DOCUSATE SODIUM 100 MG CAPSULE PO SCH (10:22)
--- NOTE | 2020-02-01 15:01 | PDOC DISCHARGE SUMMARY ---
Impression - Admit/DC Date/PCP Admission Date/Primary Care Provider: 01/29/20 21:10 YAYA GALLEGO MD Discharge Date: 02/01/20 - Discharge Diagnosis (1) Active labor at term Is this a current diagnosis for this admission?: Yes (2) Laceration, obstetrical, first degree Is this a current diagnosis for this admission?: Yes (3) Vaginal delivery Is this a current diagnosis for this admission?: Yes - Additional Information Discharge Diet: Regular Discharge Activity: Balance Activity w/Rest, Pelvic Rest Referrals: YAYA GALLEGO MD [Primary Care Provider] - Prescriptions: Ibuprofen [Motrin 800 mg Tablet] 800 mg PO Q8HP PRN #60 tablet PRN Reason: Home Medications: Vit No.130/Iron/Folic [ Tablet] 1 each PO DAILY 11/25/19 Ibuprofen [Motrin 800 mg Tablet] 800 mg PO Q8HP PRN #60 tablet 02/01/20 Hospital Course 59. Maternal Morbidity (serious complications experinced by the mother associated with labor and delivery: None of the above Results Laboratory Results: WBC 13.8 10^3/uL (4.0-10.5) H 01/31/20 06:53 RBC 3.23 10^6/uL (3.72-5.28) L 01/31/20 06:53 Hgb 9.7 g/dL (12.0-15.5) L 01/31/20 06:53 Hct 28.4 % (36.0-47.0) L 01/31/20 06:53 MCV 88 fl (80-97) 01/31/20 06:53 MCH 30.1 pg (27.0-33.4) 01/31/20 06:53 MCHC 34.3 g/dL (32.0-36.0) 01/31/20 06:53 RDW 14.2 % (11.5-14.0) H 01/31/20 06:53 Plt Count 208 10^3/uL (150-450) 01/31/20 06:53 Lymph % (Auto) 10.3 % (13-45) L 01/29/20 23:55 [place] % (Auto) 7.8 % (3-13) 01/29/20 23:55 Eos % (Auto) 0.6 % (0-6) 01/29/20 23:55 Baso % (Auto) 0.4 % (0-2) 01/29/20 23:55 Absolute Neuts (auto) 12.3 10^3/uL (1.7-8.2) H 01/29/20 23:55 Absolute Lymphs (auto) 1.6 10^3/uL (0.5-4.7) 01/29/20 23:55 Absolute Monos (auto) 1.2 10^3/uL (0.1-1.4) 01/29/20 23:55 Absolute Eos (auto) 0.1 10^3/uL (0.0-0.6) 01/29/20 23:55 Absolute Basos (auto) 0.1 10^3/uL (0.0-0.2) 01/29/20 23:55 Seg Neutrophils % 80.9 % (42-78) H 01/29/20 23:55 Urine Color YELLOW 01/29/20 19:05 Urine Appearance CLEAR 01/29/20 19:05 Urine pH 7.0 (5.0-9.0) 01/29/20 19:05 Ur Specific [place] 1.014 01/29/20 19:05 Urine Protein 30 mg/dL (NEGATIVE) H 01/29/20 19:05 Urine Glucose (UA) NEGATIVE mg/dL (NEGATIVE) 01/29/20 19:05 Urine Ketones NEGATIVE mg/dL (NEGATIVE) 01/29/20 19:05 Urine Blood NEGATIVE (NEGATIVE) 01/29/20 19:05 Urine Nitrite NEGATIVE (NEGATIVE) 01/29/20 19:05 Urine Bilirubin NEGATIVE (NEGATIVE) 01/29/20 19:05 Urine Urobilinogen 2.0 mg/dL (<2.0) H 01/29/20 19:05 Ur Leukocyte Esterase TRACE (NEGATIVE) H 01/29/20 19:05 Urine WBC (Auto) 6 /HPF 01/29/20 19:05 Urine RBC (Auto) 1 /HPF 01/29/20 19:05 Urine Bacteria (Auto) TRACE /HPF 01/29/20 19:05 Squamous Epi Cells Auto 2 /HPF 01/29/20 19:05 Urine Mucus (Auto) RARE /LPF 01/29/20 19:05 Urine Ascorbic Acid NEGATIVE (NEGATIVE) 01/29/20 19:05 Urine Opiates Screen NEGATIVE 01/29/20 19:05 Urine Methadone Screen NEGATIVE 01/29/20 19:05 Ur Barbiturates Screen NEGATIVE 01/29/20 19:05 Ur Phencyclidine Scrn NEGATIVE 01/29/20 19:05 Ur Amphetamines Screen NEGATIVE 01/29/20 19:05 U Benzodiazepines Scrn NEGATIVE 01/29/20 19:05 Urine Cocaine Screen NEGATIVE 01/29/20 19:05 U Marijuana (THC) Screen NEGATIVE 01/29/20 19:05 RPR NONREACTIVE (NONREACTIVE) 01/29/20 23:55 Blood Type O POSITIVE 01/30/20 07:18 Antibody Screen NEGATIVE 01/30/20 07:18 Plan Plan of Treatment: follow up in 4 weeks at [facility] for post check
== END 2020-02-01 16:51 | disposition home or self-care (01) | DRG 807 ==
LOC: LC 18:56 → LR 21:10 → 2S 01-30 12:45
PROVIDERS: ADMIT Obstetrics & Gynecology; ATTEND Obstetrics & Gynecology
PROC: 10E0XZZ Delivery of Products of Conception, External Approach (ICD-10-PCS; principal; 2020-01-30)
PROC: 0HQ9XZZ Repair Perineum Skin, External Approach (ICD-10-PCS; 2020-01-30)
PROC: 10907ZC Drainage of Amniotic Fluid, Therapeutic from Products of Conception, Via Natural or Artificial Opening (ICD-10-PCS; 2020-01-30)
DX: O71.82 Other specified trauma to perineum and vulva (principal); Z37.0 Single live birth; O69.2XX0 Labor and delivery complicated by other cord entanglement, with compression, not applicable or unspecified; Z3A.40 40 weeks gestation of pregnancy
CPT/HCPCS: 1967; 36415; 80307; 81001; 85025; 85027; 86592; 86850; 86900; 86901; J2590; J2795; J3010; J3490